=== PATIENT | male | born 1940 | race African-American/Black ===

== ENCOUNTER 2019-08-11 17:59 | Emergency (ER) | payer MEDICARE, OTHER ==
[~2019-08-11] VITALS: Ht 170.2 cm; Wt 119.2 kg
[~2019-08-11 17:59] MED LIST: ATOR10TA60 PO; LISI10TA2 PO; PANT40TA3 PO; SUCR1ORA14 PO; ZOLP5TAB PO
[2019-08-11 18:06] VITALS: BP 165/90
--- NOTE | 2019-08-11 18:07 | PHYS DOC ---
Past History Past Medical History: Diabetes, High Cholesterol, Hypertension, Other Past Surgical History: Other Alcohol Use: Occasionally Drug Use: None General Adult EDM: Chief Complaint: KNEE SWELLING HPI: HPI: ".. I ve had this happen before.. knee pain.. I usually use apple cider vinegar and massaged into my knee and it makes the pain go away but the pain has not gone away..." Patient is a 78 year old male who presents with above hx and complaints of left knee pain with edema. Patient states pain started metal over the past week. Pain is gotten progressively worse through the weekend. Patient does not give any specific history of injury to his left knee. No history of pseudogout or gout. Does have some history of degenerative joint changes/arthritis. Patient denies any fever chills. Patient localizes area pain to approximately 1 to 2 cm area of medial collateral ligament area of left knee. Area is exquisitely tender. There is no click with range of motion. There is mild crepitation with range of motion. Pain is induced with range of motion and straight leg lift. Increased pain with stressing of medial collateral ligament. There is no ballottement of patella. Cruciates appear to be relatively stable. Distal neurovascular appears intact and equal to right leg. No obvious areas of cellulitis. But does have swelling in the area of the medial collateral ligament. Patient denies any recent travel outside [facility]. Patient denies any immunosuppression. Patient is treated for high cholesterol and hypertension by Dr. Rdz patient denies any recent changes in his maintenance meds. Patient denies any dysuria. Review of Systems: Review of Systems: Constitutional: Denies fever or chills Eyes: Denies change in visual acuity HENT: Denies nasal congestion or sore throat Respiratory: Denies cough or shortness of breath Cardiovascular: Denies chest pain or edema GI: Denies abdominal pain, nausea, vomiting, bloody stools or diarrhea : Denies dysuria Musculoskeletal: Complains of left knee pain Integument: Denies rash Neurologic: Denies headache, focal weakness or sensory changes Endocrine: Denies polyuria or polydipsia Lymphatic: Denies swollen glands Psychiatric: Denies depression or anxiety Heart Score: Risk Factors: Risk Factors: DM, Current or recent (<one month) smoker, HTN, HLP, family history of CAD, obesity. Risk Scores: Score 0 - 3: 2.5% MACE over next 6 weeks - Discharge Home Score 4 - 6: 20.3% MACE over next 6 weeks - Admit for Clinical Observation Score 7 - 10: 72.7% MACE over next 6 weeks - Early Invasive Strategies Family History: Family History: Hypertension Current Medications: Current Meds: See nursing for home meds Allergies: Allergies: Allergies Coded Allergies Type Severity Reaction Last Updated Verified No Known Drug Allergies 04/20/14 No Physical Exam: PE: Constitutional: Moderate acute distress, non-toxic appearance. [] HENT: Normocephalic, atraumatic, bilateral external ears normal, oropharynx moist, no oral exudates, nose normal. [] Eyes: PERRLA, EOMI, conjunctiva normal, no discharge. [] Neck: Normal range of motion, no tenderness, supple, no stridor. [Neck circumference more than 17 inches Cardiovascular:Heart rate regular rhythm, no murmur [] PMI to the left Lungs & Thorax: Bilateral breath sounds clear to auscultation [] Abdomen: Bowel sounds normal, soft, no tenderness, no masses, no pulsatile masses. Obese. Skin: Warm, dry, no erythema, no rash. [] Back: No tenderness, no CVA tenderness. [] Extremities: No tenderness, no cyanosis, no clubbing, ROM intact, no edema. [] Except findings in left knee as per HPI Neurologic: Alert and oriented X 3, normal motor function, normal sensory function, no focal deficits noted. [] Psychologic: Affect normal, judgement normal, mood normal. [] EKG: EKG: [] Radiology/Procedures: Radiology/Procedures: [][address] [id number] IMAGING REPORT Signed PATIENT: EMILY MARRERO RACCOUNT: [id number] : 1940 LOCATION: ER AGE: 78 SEX: M EXAM STATUS: REG ER ORD. PHYSICIAN: MABEL GAUTHIER MD REASON: pain, X A FEW DAYS, NO KNOWN INJURY. PROCEDURE: KNEE LEFT 4V Four view left knee radiographs 08/11/2019 CLINICAL HISTORY: Left knee pain for several days. AP, oblique, lateral and sunrise digital radiographs of the left knee were obtained. No fracture or dislocation of the left knee is seen. Mild degenerative changes are seen involving all three compartments of the left knee. Moderate enthesophyte formation is seen involving the anterior patella and tibial tuberosity. Atherosclerotic calcification of the left popliteal artery and its branches is noted. There is a probable small left supra patellar joint effusion. IMPRESSION: Degenerative changes are seen involving the left knee as discussed above. No acute osseous abnormality is seen. Electronically signed by: Sohan Prakash MD (08/11/2019 6:57 PM) [id number] DICTATED AND SIGNED BY: SOHAN PRAKASH MD DATE: 08/11/19 185 CC: SALEEM RDZ MD; MABEL GAUTHIER MD ~ Course & Med Decision Making: Course & Med Decision Making Pertinent Labs and Imaging studies reviewed. (See chart for details) Follow with Dr. Rdz. Van wrap. Take Tylenol and Ibuprofen for pain. Marked pain take Vicoprofen. Voltaren cream may be helpful if massaged into area 4 times a day ice packs as needed. Return if any concerns. May need follow up with orthro. Distal neurovascular intact after application of Van wrap. Impression: 1. Lt knee Pain 2.Medial Lt. collateral ligament strain vs meniscus. [] Dragon Disclaimer: Dragtiff Disclaimer: This electronic medical record was generated, in whole or in part, using a voice recognition dictation system. Departure Departure: Disposition: 01 HOME/RESIDENCE PRIOR TO ADM Condition: STABLE Referrals: SALEEM RDZ MD (PCP) Scripts Diclofenac Sodium (VOLTAREN) 100 Gm Gel..gram. 1 GM TP QID for pain for 30 Days, #100 GM 0 Refills apply to affected area(s) Prov: MABEL GAUTHIER MD 08/11/19 Hydrocodone/Ibuprofen (HYDROCODONE-IBUPROFEN 7.5-200 ) 1 Each Tablet 1 TAB PO PRN Q6HRS PRN for PAIN, #30 TAB 0 Refills Prov: MABEL GAUTHIER MD 08/11/19 Justification of Admission: Justification of Admission: Justification of Admission Dx: N/A Dragon Disclaimer This chart was dictated in whole or in part using Voice Recognition software in a busy, high-work load, and often noisy Emergency Department environment. It may contain unintended and wholly unrecognized errors or omissions. Dragon Disclaimer This chart was dictated in whole or in part using Voice Recognition software in a busy, high-work load, and often noisy Emergency Department environment. It may contain unintended and wholly unrecognized errors or omissions. MABEL GAUTHIER MD Aug 11, 2019 18:06
[2019-08-11] MEDS ORDERED: DICL100G18 TP (18:29)
[2019-08-11] MEDS ORDERED: HYDR-1179 PO (18:29)
[2019-08-11] MEDS ORDERED: KETOROLAC 60 MG/2 ML VIAL. IM ONE (18:30)
[2019-08-11] MEDS ORDERED: methylPREDNISolone ACETATE 40 MG/ML VIAL. IM ONE (18:30)
--- NOTE | 2019-08-11 19:01 | RAD ---
Four view left knee radiographs 08/11/2019 CLINICAL HISTORY: Left knee pain for several days. AP, oblique, lateral and sunrise digital radiographs of the left knee were obtained. No fracture or dislocation of the left knee is seen. Mild degenerative changes are seen involving all three compartments of the left knee. Moderate enthesophyte formation is seen involving the anterior patella and tibial tuberosity. Atherosclerotic calcification of the left popliteal artery and its branches is noted. There is a probable small left suprapatellar joint effusion. IMPRESSION: Degenerative changes are seen involving the left knee as discussed above. No acute osseous abnormality is seen. Electronically signed by: Sohan Prakash MD (08/11/2019 6:57 PM) [id number]
== END 2019-08-11 19:05 | disposition home or self-care (01) ==
LOC: ER 17:59
DX: M25.562 Pain in left knee (principal); R60.0 Localized edema; E11.9 Type 2 diabetes mellitus without complications; E78.00 Pure hypercholesterolemia, unspecified; I10 Essential (primary) hypertension
CPT/HCPCS: 73564; 96372; 99284; J1030; J1885

== ENCOUNTER → 2020-03-06 | Outpatient (CLI) | payer MEDICARE ==
[~2020-03-06] MED LIST changes: +DICL100G18 TP; +HYDR-1179 PO
--- NOTE | 2020-03-06 11:46 | RAD ---
EXAM: Lumbar spine, 3 views. HISTORY: Pain. COMPARISON: None. FINDINGS: 3 views of the lumbar spine are obtained. There is grade 1 anterolisthesis of L4 and L5, me asuring 3 mm. There is degenerative endplate remodeling with complete to near complete loss of the di sc space and severe facet arthropathy at L5-S1. There is colonic changes at this level. There is toya tional endplate remodeling and facet arthropathy throughout the remainder of the lumbar and lower tho racic spine. IMPRESSION: 1. Severe degenerative change and laminectomy decompression at the lumbosacral junction 2. Multilevel degenerative change throughout the remainder the visualized lumbar and lower thoracic s pine. Electronically signed by: Sonja Sellers MD (03/06/2020 11:41 AM) [id number]
== END ==
LOC: DXRAD 11:11
PROVIDERS: ATTEND Nurse Practitioner Adult Health
DX: M47.817 Spondylosis without myelopathy or radiculopathy, lumbosacral region (principal); M47.814 Spondylosis without myelopathy or radiculopathy, thoracic region
CPT/HCPCS: 72100